=== PATIENT | female | born 1990 | race Native Hawaiian/Other Pacific Islander ===

== ENCOUNTER 2022-03-25 22:52 | Emergency (ER) | payer SELFPAY ==
[~2022-03-25] VITALS: Ht 160 cm; Wt 54.4 kg
[2022-03-25 23:10] VITALS: BP 121/72
--- NOTE | 2022-03-26 02:03 | NUR ---
PT CALLED, NO ANSWER
--- NOTE | 2022-03-26 03:49 | NUR ---
PT CALLED IN LOBBY AND OUTSIDE OF LOBBY, NO ANSWER
== END 2022-03-26 02:03 | disposition left against medical advice (07) ==
LOC: MED 22:52
DX: O26.891 Other specified pregnancy related conditions, first trimester (principal); Z3A.10 10 weeks gestation of pregnancy; Z53.21 Procedure and treatment not carried out due to patient leaving prior to being seen by health care provider